=== PATIENT | female | born 1980 | race Caucasian/White ===

== ENCOUNTER 2016-07-01 17:47 | Emergency (ER) | payer BC ==
[2016-07-01 18:00] VITALS: BP 120/80; PULSE 78; RESP 18; TEMP 97.7; O2SAT 99
--- NOTE | 2016-07-01 18:30 | EDPHY ---
H & P Smoking Status: Light smoker Time Seen by Provider: 07/01/16 18:20 HPI/ROS: CHIEF COMPLAINT: And dysuria with frequency HISTORY OF PRESENT ILLNESS: This is a 35-year-old female presenting to the emergency department complaining of painful urination onset around noon today, 1 -2 hours prior to arrival noted she started having blood in her urine with increased urgency frequency and dysuria. Denies any nausea vomiting tolerating p.o. intake. Patient did take 400 mg of ibuprofen at 2:30 p.m. REVIEW OF SYSTEMS: Constitutional: No fever, no chills. Eyes: No discharge. ENT: No sore throat. Cardiovascular: No chest pain, no palpitations. Respiratory: No cough, no shortness of breath. Gastrointestinal: Suprapubic abdominal pressure, no vomiting. Genitourinary: Dysuria, frequency and hematuria. Musculoskeletal: Dull back pain. Skin: No rashes. Neurological: No headache. (Marixa Machuca) Physical Exam: General Appearance: Alert and no distress. Eyes: no injection. Respiratory: Chest is nontender, lungs are clear to auscultation. Cardiac: regular rate and rhythm HEENT: Normocephalic atraumatic Eyes no injection, no pallor. Gastrointestinal: Abdomen is soft, nondistended, suprapubic tenderness on palpation no masses, bowel sounds normal. Musculoskeletal: Neck is supple and nontender. No CVA tenderness on palpation Extremities: full range of motion and are nontender. Skin: No rashes or lesions. (Marixa Machuca) Constitutional: Initial Vital Signs Temperature (C) 36.5 C 07/01/16 17:58 Heart Rate 78 07/01/16 17:58 Respiratory Rate 18 07/01/16 17:58 Blood Pressure 120/80 07/01/16 17:58 O2 Sat (%) 99 07/01/16 17:58 O2 Delivery Mode Room Air Allergies/Adverse Reactions: azithromycin Allergy (Intermediate, Verified 07/01/16 18:01) Home Medications: Medication Instructions Recorded Sulfamethox/Tmp 800/160 mg 1 tab PO BID #10 tab 07/01/16 [Bactrim Ds] Medical Decision Making ED Course/Re-evaluation: Discussed the plan of care: UA. Discussed results with patient, urine will be sent for culture if there are any changes needed to antibiotics the hospital call you. Discharge home---> stable, discussed discharge instructions (Marixa Machuca) I did not see this patient while she was in the emergency department. However her care was discussed with the nurse practitioner while the patient was in the department. I agree with treatment plan and management (Nick Martínez) Differential Diagnosis: Other differential diagnosis considered not limited to pyelonephritis, renal stone, and interstitial cystitis (Marixa Machuca) - Data Points Laboratory Results: 07/01/16 18:10 Urine Color YELLOW Urine Appearance MODERATELY TURBID Urine pH 6.0 (5.0-7.5) Ur Specific [place] 1.017 (1.002-1.030) Urine Protein 2+ H (NEGATIVE) Urine Ketones NEGATIVE (NEGATIVE) Urine Blood 3+ H (NEGATIVE) Urine Nitrate NEGATIVE (NEGATIVE) Urine Bilirubin NEGATIVE (NEGATIVE) Urine Urobilinogen NEGATIVE EU EU (0.2-1.0) Ur Leukocyte Esterase 3+ H (NEGATIVE) Urine RBC 50-182 /hpf H /hpf (0-3) Urine WBC 50-182 /hpf H /hpf (0-3) Ur Epithelial Cells TRACE /lpf /lpf (NONE-1+) Urine Mucus 1+ /lpf /lpf (NONE-1+) Urine Yeast PRESENT /hpf /hpf (NONE SEEN) Urine Glucose NEGATIVE (NEGATIVE) Medications Given: Discontinued Medications Phenazopyridine HCl (Pyridium) 200 mg PO EDNOW ONE Stop: 07/01/16 18:46 Last Admin: 07/01/16 18:56 Dose: 200 mg Trimethoprim/Sulfamethoxazole (Bactrim Ds Prepack#2) 1 btl TAKEHOME EDNOW ONE Stop: 07/01/16 18:45 Last Admin: 07/01/16 18:56 Dose: 1 btl Departure - Departure Disposition: Home, Routine, Self-Care Clinical Impression: Urinary tract infection Qualifiers: Urinary tract infection type: site unspecified Hematuria presence: without hematuria Qualified Code(s): N39.0 - Urinary tract infection, site not specified Condition: Good Instructions: Sulfamethoxazole/Trimethoprim (By mouth), Urinary Tract Infection in Women (ED), Dysuria (ED) Additional Instructions: Discussed discharge instructions 1. Increase water intake, you can also drink cranberry juice there studies that shown that there is a benefit with urinary tract infections 2. Ibuprofen 600 mg every 6-8 hours as needed 3. You can also take azo [id number] for up to 2 days to help with painful urination. This can make her urine orange 4. Take all antibiotics as prescribed Referrals: BALDOMERO CRUMP [Primary Care Provider] - As per Instructions Prescriptions: Sulfamethox/Tmp 800/160 mg [Bactrim Ds] 1 tab PO BID #10 tab
[2016-07-01 18:33] LABS: COLOR YELLOW; LEUKOCYTE ESTERASE,URINE 3+ (NEGATIVE); NITRITE,URINE NEGATIVE (NEGATIVE)
[2016-07-01 18:37] LABS: MUCUS 1+ /lpf (NONE-1+); RBC,URINE 50-182 /hpf (0-3); WBC,URINE 50-182 /hpf (0-3); YEAST PRESENT /hpf (NONE SEEN)
[2016-07-01] MEDS ORDERED: SULFAMET/TMP DS PREPACK#2 BTL TAKEHOME ONE (18:44)
[2016-07-01] MEDS ORDERED: PHENAZOPYRIDINE HCL 200 MG TAB PO ONE (18:45)
== END 2016-07-01 18:57 | disposition home or self-care (01) ==
DX: N39.0 Urinary tract infection, site not specified (principal); B96.29 Other Escherichia coli [E. coli] as the cause of diseases classified elsewhere; F17.200 Nicotine dependence, unspecified, uncomplicated